=== PATIENT | male | born 1955 | race Asian ===

== ENCOUNTER 2018-08-19 20:10 | Emergency (ER) | payer OTHER ==
[~2018-08-19] VITALS: Ht 165.1 cm; Wt 67.1 kg
[~2018-08-19 20:10] MED LIST: BENZ1TAB43 PO; CALCARB/D600 MG PO; DIVA500T2 PO; DONE5TAB PO; ENSURE PLUS PO; HALO50IN4 IM; HALO5INJ3 IM; HYDR5TAB9 PO; LEVO0.0529 PO; LORA1TAB17 PO; MELATONIN3 MG PO; MICROZIDE12.5 MG PO; NAMENDA10 MG PO; NAMENDA5 MG PO; OMEP20CA PO; PROZAC10 MG PO; TEGRETOL200 MG PO; VITAMIN D31000 UNI1 PO; ZIPR20CA PO; ZIPR20IN IM; ZIPR80CA PO; [UNRECOGNIZED DRUG - MIXTURE] PO; [UNRECOGNIZED DRUG - OTHER] IJ
[2018-08-19 21:56] LABS: POTASSIUM 4.1 mmol/L (3.6-5.2)
[2018-08-19 21:57] LABS: PLATELET COUNT 220 K/uL (142-355)
[2018-08-19 22:43] VITALS: BP 106/55; TEMP 97.2
[2018-08-20] MEDS ORDERED: EUTHYROX75 MCG PO (02:00)
[2018-08-20] MEDS ORDERED: PROZAC10 MG PO (02:08)
[2018-08-20] MEDS ORDERED: SEROQUEL25 MG PO (02:38)
[2018-08-20] MEDS ORDERED: LORA2TAB7 PO (02:41)
[2018-08-20] MEDS ORDERED: DONE5TAB PO (03:18)
== END 2018-08-19 23:03 | disposition other institution (70) ==
LOC: ED 20:10
PROVIDERS: Emergency Medicine
DX: F28 Other psychotic disorder not due to a substance or known physiological condition (principal); Z04.6 Encounter for general psychiatric examination, requested by authority; R00.1 Bradycardia, unspecified
CPT/HCPCS: 80053; 85027; 93005; 99285